=== PATIENT | male | born 1935 | race Caucasian/White ===

== ENCOUNTER 2018-03-30 13:05 | Inpatient (IN) | payer MEDICARE ==
--- NOTE | 2018-03-30 13:32 | ED ---
General Adult HPI - General Chief complaint: Psychiatric Symptoms Stated complaint: mental health Time Seen by Provider: 03/30/18 13:23 Source: patient, family, RN notes reviewed Mode of arrival: ambulatory Limitations: no limitations - History of Present Illness Initial comments: Patient is a pleasant 82-year-old male presenting to the emergency department with depression and anxiety. Symptoms have been occurring for months and worse over the past several days. Patient has not been eating well or sleeping well. Patient has tightness and anxiety over his body. Symptoms are getting worse regarding his current living situation and his 's recent surgery. Patient is having thoughts of self-harm, without plan. No history of previous suicide attempt. No homicidal thoughts. No street drug use. Rare alcohol use. - Related Data Home Medications Medication Instructions Recorded Confirmed ALPRAZolam [Xanax] 0.25 mg PO TID PRN 03/30/18 03/30/18 Albuterol Inhaler [Ventolin Hfa 1 - 2 puff INHALATION RT-Q6H PRN 03/30/18 Inhaler] Atorvastatin [Lipitor] 40 mg PO HS 03/30/18 03/30/18 Budesonide-Formot 160-4.5 Mcg 2 puff INHALATION RT-DAILY PRN 03/30/18 03/30/18 [Symbicort 160-4.5 Mcg Inhaler] Escitalopram [Lexapro] 10 mg PO HS 03/30/18 03/30/18 Fluticasone/Salmeterol [Advair Hfa 2 puff INHALATION RT-DAILY PRN 03/30/1803/30 230-21 Mcg Inhaler] Montelukast [Singulair] 10 mg PO HS 03/30/18 03/30/18 Allergies Allergy/AdvReac Type Severity Reaction Status Date / Time No Known Allergies Allergy Verified 03/30/18 13:41 Review of Systems ROS Statement: Those systems with pertinent positive or pertinent negative responses have been documented in the HPI. ROS Other: All systems not noted in ROS Statement are negative. Constitutional: Denies: fever Eyes: Denies: eye pain ENT: Denies: ear pain Respiratory: Denies: cough Cardiovascular: Denies: palpitations Endocrine: Denies: fatigue Gastrointestinal: Denies: vomiting Genitourinary: Denies: dysuria Musculoskeletal: Denies: back pain Skin: Denies: rash Neurological: Denies: weakness Psychiatric: Reports: anxiety, depression, suicidal thoughts Past Medical History Past Medical History: Asthma History of Any Multi-Drug Resistant Organisms: None Reported Past Surgical History: Hernia Repair Past Psychological History: No Psychological Hx Reported Smoking Status: Never smoker Past Alcohol Use History: Daily Past Drug Use History: None Reported General Exam Limitations: no limitations General appearance: alert, in no apparent distress Head exam: Present: atraumatic Eye exam: Present: normal appearance, PERRL ENT exam: Present: normal oropharynx Neck exam: Present: normal inspection Respiratory exam: Present: normal lung sounds bilaterally. Absent: chest wall tenderness Cardiovascular Exam: Present: regular rate, normal rhythm Expanded Peripheral pulses: 2+: Radial (R), Radial (L), Dorsalis Pedis (R), Dorsalis Pedis (L) GI/Abdominal exam: Present: soft. Absent: tenderness Extremities exam: Present: normal inspection. Absent: pedal edema, calf tenderness Neurological exam: Present: alert Psychiatric exam: Present: depressed, suicidal ideation Skin exam: Present: normal color Course Vital Signs 03/30/18 13:11 Temperature 97.0 F L Pulse Rate 72 Respiratory 18 Rate Blood Pressure 159/85 O2 Sat by Pulse 96 Oximetry EKG Findings - EKG Comments: EKG Findings:: Normal sinus rhythm 69. CT 194. QRS 164. QT 450. QTC 482. Normal axis. Right bundle branch block. No acute ST change. Medical Decision Making - Medical Decision Making Patient was seen by mental health services, who will admit. - Lab Data Result diagrams: 03/30/18 13:44 03/30/18 13:44 Lab Results 03/30/18 03/30/18 03/30/18 Range/Units 13:44 13:44 13:44 WBC 9.3 (3.8-10.6) k/uL RBC 4.72 (4.30-5.90) m/uL Hgb 15.0 (13.0-17.5) gm/dL Hct 44.5 (39.0-53.0) % MCV 94.3 (80.0-100.0) fL MCH 31.8 (25.0-35.0) pg MCHC 33.7 (31.0-37.0) g/dL RDW 12.0 (11.5-15.5) % Plt Count 246 (150-450) k/uL Neutrophils % 67 % Lymphocytes % 23 % Monocytes % 7 % Eosinophils % 1 % Basophils % 0 % Neutrophils # 6.2 (1.3-7.7) k/uL Lymphocytes # 2.1 (1.0-4.8) k/uL Monocytes # 0.6 (0-1.0) k/uL Eosinophils # 0.1 (0-0.7) k/uL Basophils # 0.0 (0-0.2) k/uL Sodium 137 (137-145) mmol/L Potassium 3.8 (3.5-5.1) mmol/L Chloride 103 (98-107) mmol/L Carbon Dioxide 26 (22-30) mmol/L Anion Gap 8 mmol/L BUN 13 (9-20) mg/dL Creatinine 1.02 (0.66-1.25) mg/dL Est GFR (CKD-EPI)AfAm 78 (>60 ml/min/1.73 sqM) Est GFR (CKD-EPI)NonAf 68 (>60 ml/min/1.73 sqM) Glucose 105 H (74-99) mg/dL Calcium 9.1 (8.4-10.2) mg/dL Urine Color Light Yellow Urine Appearance Clear (Clear) Urine pH 7.0 (5.0-8.0) Ur Specific [place] 1.007 (1.001-1.035) Urine Protein Negative (Negative) Urine Glucose (UA) Negative (Negative) Urine Ketones 1+ H (Negative) Urine Blood Trace H (Negative) Urine Nitrite Negative (Negative) Urine Bilirubin Negative (Negative) Urine Urobilinogen <2.0 (<2.0) mg/dL Ur Leukocyte Esterase Negative (Negative) Urine RBC 1 (0-5) /hpf Urine Bacteria Rare H (None) /hpf Urine Opiates Screen Not Detected (NotDetected) Ur Oxycodone Screen Not Detected (NotDetected) Urine Methadone Screen Not Detected (NotDetected) Ur Propoxyphene Screen Not Detected (NotDetected) Ur Barbiturates Screen Not Detected (NotDetected) U Tricyclic Antidepress Not Detected (NotDetected) Ur Phencyclidine Scrn Not Detected (NotDetected) Ur Amphetamines Screen Not Detected (NotDetected) U Methamphetamines Scrn Not Detected (NotDetected) U Benzodiazepines Scrn Detected H (NotDetected) Urine Cocaine Screen Not Detected (NotDetected) U Marijuana (THC) Screen Not Detected (NotDetected) Serum Alcohol <10 mg/dL Disposition Clinical Impression: Depression, Suicidal ideation Disposition: ADMITTED IP TO THIS HOSP Is patient prescribed a controlled substance at d/c from ED?: No Referrals: Nonstaff,Physician [REFERRING] - 1-2 days Decision Time: 15:49
[2018-03-30 13:56] LABS: Basophils % (A) 0 %; Eosinophils # (A) 0.1 k/uL (0-0.7); Eosinophils % (A) 1 %; HCT 44.5 % (39.0-53.0); Lymphocytes # (A) 2.1 k/uL (1.0-4.8); Lymphocytes % (A) 23 %; MCH 31.8 pg (25.0-35.0); MCHC 33.7 g/dL (31.0-37.0); MCV 94.3 fL (80.0-100.0); Mean Platelet Volume 6.4; Monocytes # (A) 0.6 k/uL (0-1.0); Monocytes % (A) 7 %; Neutrophils # (A) 6.2 k/uL (1.3-7.7); Neutrophils % (A) 67 %; Platelet Count 246 k/uL (150-450); RBC 4.72 m/uL (4.30-5.90); WBC 9.3 k/uL (3.8-10.6)
[2018-03-30 13:58] LABS: Appearance,Urine Clear (Clear); Bacteria,Urine Rare /hpf; Bilirubin,Urine Negative (Negative); Blood,Urine Trace (Negative); Color,Urine Light Yellow; Glucose,Urine (UA) Negative (Negative); Ketones,Urine 1+ (Negative); Leukocyte Esterase,Urine Negative (Negative); Nitrite,Urine Negative (Negative); Protein,Urine Negative (Negative); RBC,Urine 1 /hpf (0-5); Specific Gravity,Urine 1.007 (1.001-1.035); Urobilinogen,Urine <2.0 mg/dL (<2.0)
[2018-03-30 14:04] LABS: Alcohol <10 mg/dL; Anion Gap 8 mmol/L; Blood Urea Nitrogen 13 mg/dL (9-20); Calcium 9.1 mg/dL (8.4-10.2); Carbon Dioxide 26 mmol/L (22-30); Chloride 103 mmol/L (98-107); Glucose 105 mg/dL (74-99); Potassium 3.8 mmol/L (3.5-5.1); Sodium 137 mmol/L (137-145)
[2018-03-30 14:08] LABS: Amphetamine Screen,Urine Not Detected (NotDetected); Barbiturate Screen,Urine Not Detected (NotDetected); Benzodiazepines Screen,Urine Detected (NotDetected); Cocaine Screen,Urine Not Detected (NotDetected); Methadone Screen, Urine Not Detected (NotDetected); Opiate Screen,Urine Not Detected (NotDetected); Oxycodone Screen, Urine Not Detected (NotDetected); Phencyclidine Screen,Urine Not Detected (NotDetected); Tricyclic Antidepressant,Urine Not Detected (NotDetected); Urn Cannabinoid Scrn Not Detected (NotDetected)
[2018-03-30] MEDS ORDERED: ACETAMINOPHEN TAB 325 MG TAB PO PRN (16:07)
[2018-03-30] MEDS ORDERED: MAG HYDROX/AL HYDROX/SIMETH 30 ML CUP PO PRN (16:07)
[2018-03-30 17:49] VITALS: BMI 22.7
[2018-03-30] MEDS: LORazepam 0.5 MG TAB PO PRN (18:10)
[2018-03-30] MEDS: MONTELUKAST 10 MG TAB PO SCH (20:53)
[2018-03-30] MEDS: ESCITALOPRAM 10 MG TAB PO SCH (20:53)
[2018-03-30] MEDS: ATORVASTATIN 40 MG TAB PO SCH (20:53)
[2018-03-30] MEDS: MELATONIN 3 MG TABLET PO SCH (20:53)
[2018-03-31] MEDS: LORazepam 0.5 MG TAB PO PRN ×2 (06:34→18:12)
[2018-03-31] MEDS ORDERED: ALBUTEROL INHALER 60 PUFF/8 GM INHALER INHALATION PRN (06:38)
--- NOTE | 2018-03-31 06:42 | P.HPMEDMHU ---
History of Present Illness H&P Date: 03/31/18 Chief Complaint: Anxiety Mr. Brian is an 82-year-old male with a past medical history of asthma, enlarged prostate, dyslipidemia, and anxiety who presented to the emergency department with complaints of depression and anxiety. He has been admitted to the mental health unit and we have been asked to consult for medical management. Patient seen and examined at bedside with nursing present. A states he has had anxiety and depression related to his 's chronic medical conditions. They' re currently trying to move her into medical [place] and he has no control over this and it has been giving him anxiety. He has been taking his as needed Xanax more frequently in order to help cope. He describes his anxiety is feeling like an elephant is sitting on his chest- this gets better when taking his benzodiazepines. He has had associated insomnia and decreased appetite. He reports he does see a furniture dipper. He last saw Dr. Hi approximately one year ago and underwent a stress test and echocardiogram at that point in time. He was cleared for one year. He does have some urinary difficulties which are chronic in nature. He does not take any medications for this but does see a urologist. He reports that his COPD is well controlled. He denies any recent cough, cold, fever, flu, nausea, vomiting, or unusual shortness of breath. He takes his inhalers as needed. Review of Systems Pertinent positives and negatives as discussed in HPI, a complete review of systems was performed and all other systems are negative. 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; Allergies History of Any Multi-Drug Resistant Organisms: None Reported Past Surgical History: Hernia Repair Additional Past Surgical History / Comment(s): Basal cell skin cancer removed L side face; L eye lesion removed, Septum repair, R and Left inguinal hernia repair Past Anesthesia/Blood Transfusion Reactions: No Reported Reaction Past Psychological History: Anxiety Smoking Status: Former smoker Past Alcohol Use History: Daily Additional Past Alcohol Use History / Comment(s): 2 alcoholic beverages daily Past Drug Use History: None Reported - Past Family History Father Family Medical History: Congestive Heart Failure (CHF) Mother Family Medical History: Dementia Additional Family Medical History / Comment(s): Alzheimers Brother(s) Family Medical History: Cancer, Congestive Heart Failure (CHF) Additional Family Medical History / Comment(s): Kidney Cancer Sister(s) Family Medical History: Cancer Additional Family Medical History / Comment(s): Breast Cancer Medications and Allergies Home Medications Medication Instructions Recorded Confirmed Type ALPRAZolam [Xanax] 0.25 mg PO TID PRN 03/30/18 03/30/18 History Albuterol Inhaler [Ventolin Hfa 1 - 2 puff INHALATION RT-Q6H PRN 03/30/18 History Inhaler] Atorvastatin [Lipitor] 40 mg PO HS 03/30/18 03/30/18 History Budesonide-Formot 160-4.5 Mcg 2 puff INHALATION RT-DAILY PRN 03/30/18 03/30/18 History [Symbicort 160-4.5 Mcg Inhaler] Escitalopram [Lexapro] 10 mg PO HS 03/30/18 03/30/18 History Fluticasone/Salmeterol [Advair Hfa 2 puff INHALATION RT-DAILY PRN 03/30/1803/30 History 230-21 Mcg Inhaler] Montelukast [Singulair] 10 mg PO HS 03/30/18 03/30/18 History Allergies Allergy/AdvReac Type Severity Reaction Status Date / Time No Known Allergies Allergy Verified 03/30/18 17:55 Physical Exam Osteopathic Statement: *. No significant issues noted on an osteopathic structural exam other than those noted in the History and Physical/Consult. Vitals: Vital Signs Temp Pulse Pulse Pulse Resp BP BP 03/30/18 20:57 77 03/30/18 17:34 97.1 F L 73 20 145/86 03/30/18 16:01 97.7 F 68 18 166/75 03/30/18 13:11 97.0 F L 72 18 159/85 BP Pulse Ox 03/30/18 20:57 130/90 03/30/18 17:34 97 03/30/18 16:01 98 03/30/18 13:11 96 Intake and Output 03/30/18 03/30/18 03/31/18 14:59 22:59 06:59 Other: Weight 79.379 kg 78.3 kg General: non toxic, no distress, appears at stated age, normal weight Derm: no unusual rashes/lesions no unusual ecchymoses, warm, dry Head: atraumatic, normocephalic, symmetric Eyes: EOMI, no lid lag, anicteric sclera, pupils equal round reactive to light ENT: Nose and ears atraumatic, no thrush, no pharyngeal erythema Neck: No thyromegaly, no cervical lymphadenopathy, trachea midline, supple Mouth: no lip lesion, mucus membranes moist Cardiovascular: S1S2 reg, no murmur, positive posterior tibial pulse bilateral, no edema, capillary refill less than 2 seconds Lungs: CTA bilateral, no rhonchi, no rales , no accessory muscle use Abdominal: soft, nontender to palpation, no guarding, no appreciable organomegaly, normal bowel sounds Ext: no gross muscle atrophy, muscle strength 5 out of 5 in all 4 extremities grossly, no contractures, Neuro: CN II-XI grossly intact, light touch intact all 4 extremities, finger to nose within normal limits, Psych: Alert, oriented, appropriate affect Cranial Nerve Examination - Cranial Nerves Cranial Nerve II- Optic: Intact Cranial Nerve III- Oculomotor: Intact Cranial Nerve IV- Trochlear: Intact Cranial Nerve V- Trigeminal: Intact Cranial Nerve - Abducens: Intact Cranial Nerve VII- Facial: Intact Cranial Nerve VIII- Auditory: Intact Cranial Nerve IX- Glossopharyngeal: Intact Cranial Nerve X- Vagus: Intact Cranial Nerve XI- Accessory: Intact Cranial Nerve XII- Hypoglossal: Intact Results CBC & Chem 7: 03/30/18 13:44 03/30/18 13:44 Labs: Abnormal Lab Results - Last 24 Hours (Table) 03/30/18 03/30/18 Range/Units 13:44 13:44 Glucose 105 H (74-99) mg/dL Urine Ketones 1+ H (Negative) Urine Blood Trace H (Negative) Urine Bacteria Rare H (None) /hpf U Benzodiazepines Scrn Detected H (NotDetected) Comments: EKG is reviewed by myself reveals normal sinus rhythm at a rate of 69 with a right bundle branch block and prolonged QCT of 498 Thrombosis Risk Factor Assmnt - Choose All That Apply Any of the Below Risk Factors Present?: No Other Risk Factors: Yes Each Risk Factor Represents 3 Points: Age 75 years or older Other congenital or acquired thrombophilia - If yes, enter type in comment: No Thrombosis Risk Factor Assessment Total Risk Factor Score: 3 Thrombosis Risk Factor Assessment Level: Moderate Risk Assessment and Plan Assessment: Prolonged QT and right bundle branch block -Patient needs to follow-up with Dr. Hi, on discharge for further testing -Nursing made aware and recommendations added to discharge tab Asthma without acute exacerbation -Continue as needed bronchodilators Dyslipidemia -Continue Lipitor Anxiety depression -Your psych management -Please no prolonged QT - Check TSH Thank you for allowing us to participate in the care of this patient. We will follow peripherally. Do not hesitate to contact us with questions. Someone can be reached from the [facility] hospitalist group at all hours of the day at [phone].
[2018-03-31 10:06] LABS: Albumin 3.9 g/dL (3.5-5.0); Bilirubin, Delta 0.3 mg/dL (0.0-0.2); Total Bilirubin 1.3 mg/dL (0.2-1.3); Total Protein 6.4 g/dL (6.3-8.2)
--- NOTE | 2018-03-31 10:18 | P.HP ---
Psychiatric H&P - . H&P Date: 03/31/18 History & Physical: Allergies Allergy/AdvReac Type Severity Reaction Status Date / Time No Known Allergies Allergy Verified 03/30/18 17:55 Vital Signs Temp 97.8 F 03/31/18 06:25 Pulse 63 03/31/18 06:25 Resp 18 03/31/18 06:25 BP 141/67 03/31/18 06:25 Pulse Ox 97 03/30/18 17:34 Intake & Output 03/30/18 03/31/18 03/31/18 18:59 06:59 18:59 Weight 78.3 kg Laboratory Last Values WBC 9.3 k/uL (3.8-10.6) 03/30/18 13:44 RBC 4.72 m/uL (4.30-5.90) 03/30/18 13:44 Hgb 15.0 gm/dL (13.0-17.5) 03/30/18 13:44 Hct 44.5 % (39.0-53.0) 03/30/18 13:44 MCV 94.3 fL (80.0-100.0) 03/30/18 13:44 MCH 31.8 pg (25.0-35.0) 03/30/18 13:44 MCHC 33.7 g/dL (31.0-37.0) 03/30/18 13:44 RDW 12.0 % (11.5-15.5) 03/30/18 13:44 Plt Count 246 k/uL (150-450) 03/30/18 13:44 Neutrophils % 67 % 03/30/18 13:44 Lymphocytes % 23 % 03/30/18 13:44 Monocytes % 7 % 03/30/18 13:44 Eosinophils % 1 % 03/30/18 13:44 Basophils % 0 % 03/30/18 13:44 Neutrophils # 6.2 k/uL (1.3-7.7) 03/30/18 13:44 Lymphocytes # 2.1 k/uL (1.0-4.8) 03/30/18 13:44 Monocytes # 0.6 k/uL (0-1.0) 03/30/18 13:44 Eosinophils # 0.1 k/uL (0-0.7) 03/30/18 13:44 Basophils # 0.0 k/uL (0-0.2) 03/30/18 13:44 Sodium 137 mmol/L (137-145) 03/30/18 13:44 Potassium 3.8 mmol/L (3.5-5.1) 03/30/18 13:44 Chloride 103 mmol/L (98-107) 03/30/18 13:44 Carbon Dioxide 26 mmol/L (22-30) 03/30/18 13:44 Anion Gap 8 mmol/L 03/30/18 13:44 BUN 13 mg/dL (9-20) 03/30/18 13:44 Creatinine 1.02 mg/dL (0.66-1.25) 03/30/18 13:44 Est GFR (CKD-EPI)AfAm 78 (>60 ml/min/1.73 sqM) 03/30/18 13:44 Est GFR (CKD-EPI)NonAf 68 (>60 ml/min/1.73 sqM) 03/30/18 13:44 Glucose 105 mg/dL (74-99) H 03/30/18 13:44 Calcium 9.1 mg/dL (8.4-10.2) 03/30/18 13:44 Urine Color Light Yellow 03/30/18 13:44 Urine Appearance Clear (Clear) 03/30/18 13:44 Urine pH 7.0 (5.0-8.0) 03/30/18 13:44 Ur Specific Orwell 1.007 (1.001-1.035) 03/30/18 13:44 Urine Protein Negative (Negative) 03/30/18 13:44 Urine Glucose (UA) Negative (Negative) 03/30/18 13:44 Urine Ketones 1+ (Negative) H 03/30/18 13:44 Urine Blood Trace (Negative) H 03/30/18 13:44 Urine Nitrite Negative (Negative) 03/30/18 13:44 Urine Bilirubin Negative (Negative) 03/30/18 13:44 Urine Urobilinogen <2.0 mg/dL (<2.0) 03/30/18 13:44 Ur Leukocyte Esterase Negative (Negative) 03/30/18 13:44 Urine RBC 1 /hpf (0-5) 03/30/18 13:44 Urine Bacteria Rare /hpf (None) H 03/30/18 13:44 Urine Opiates Screen Not Detected (NotDetected) 03/30/18 13:44 Ur Oxycodone Screen Not Detected (NotDetected) 03/30/18 13:44 Urine Methadone Screen Not Detected (NotDetected) 03/30/18 13:44 Ur Propoxyphene Screen Not Detected (NotDetected) 03/30/18 13:44 Ur Barbiturates Screen Not Detected (NotDetected) 03/30/18 13:44 U Tricyclic Antidepress Not Detected (NotDetected) 03/30/18 13:44 Ur Phencyclidine Scrn Not Detected (NotDetected) 03/30/18 13:44 Ur Amphetamines Screen Not Detected (NotDetected) 03/30/18 13:44 U Methamphetamines Scrn Not Detected (NotDetected) 03/30/18 13:44 U Benzodiazepines Scrn Detected (NotDetected) H 03/30/18 13:44 Urine Cocaine Screen Not Detected (NotDetected) 03/30/18 13:44 U Marijuana (THC) Screen Not Detected (NotDetected) 03/30/18 13:44 Serum Alcohol <10 mg/dL 03/30/18 13:44 03/31/18 10:06 Identification: Patient is an 82-year-old male who was brought to the emergency room by his daughter due to having bad thoughts and anxiety over his 's declining health. History of Present Illness: Patient states that his 's health has been declining over the last several years she is now diagnosed with atrial fibrillation, has had pulmonary embolisms in 2003 and is now requiring oxygen. Her kidney function is also decreasing and she recently had a wound on her right lower extremity that was difficult to close and is requiring a wound VAC. Patient states that they live in a third[place]floor apartment [place] as well as a cottage in [place]. He states that they have home care for his 's wound but that they feel trapped in the apartment. There is no elevator in the apartment and his has great difficulty getting out of the apartment. Patient states that he feels increasingly anxious and unable to control things. He states that he has not been sleeping and not been eating. He states that he doesn't feel that he has enough assistance with his and feels overwhelmed and unable to fix things. Patient contacted his prior primary care doctor in [place] who began him on Lexapro 10 mg at bedtime several days ago. Patient has been using Xanax 0.25 mg as needed up for a number of years in the winter for asthma attacks. He states that recently he has been using it at bedtime for the last month to assist with his sleep. States that he's been having difficulty concentrating, feels that he can't deal with things especially his 's health. He states that Sunday night he felt that he couldn't handle it and had no suicidal ideation or plan and did not want to but felt overwhelmed. His daughter was concerned and they returned here on Sunday and came to the emergency room. He states that his isn't able to do much she is not going to get any better and they have been looking at jail placement for her. He stated that his daughter is bringing her to the hospital today for probable admission. Patient has no history of prior suicidal ideation or attempts, he states that he has never felt this way in the past. He has never been treated for depression in the past and does not endorse any history or symptoms currently of funmilayo, psychosis but states in the 80s on 2 occasions he was treated for anxiety related to job stress. He states in the 80s he was given Pamelor for a week and in the s Zoloft which he did not tolerate. Patient states that he has never been seen by a psychiatrist and these medications were prescribed by his primary care physician in [place]. Past Psychiatric History: Patient has no prior history of inpatient treatment and no outpatient psychiatric treatment. Patient was tried on Pamelor in the 80s by his primary care physician with good results for one week and Zoloft in the past in the s with complaints of side effects. He was recently started on Lexapro 2 days ago 10 mg at bedtime by his primary care physician. Patient is also been prescribed Xanax 0.25 mg by his primary care physician to use as needed in the winter when he is having asthma attacks. Patient states he's been taking this nightly for the last month Past Medical/Surgical History: Patient has a history of asthma, status post basal cell carcinoma removed says post bilateral hernia repair and hyperlipidemia Family History: Patient reports no family history of psychiatric disorders, alcohol or substance use disorders and no completed suicides Social History: Patient was born in [place] and states that due to his father' s job they moved around a lot as a child. Both of his parents are and both of his siblings are . 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 Patient began working and was encouraged at that time to return to school and so he did that. 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 Patient retired at the age of 69. Patient and his have been for 60 years and they have 1 daughter. His is a [place] citizen and he met because his mother was also a [place] citizen. They have a cottage in [place] and an apartment in the [place]. They have one daughter and 2 grandchildren. He denies any abuse history. Substance Use History: Patient states that he drinks 2 drinks a day usually at the cocktail hour, is not anything to drink for the last several days no other drug use history currently or in the past. Patient currently is not using tobacco products. Legal History: Patient has no legal history Mental status: Appearance/Attitude: Patient is casually dressed, makes good eye contact and is cooperative. Behavior: He does not exhibit any psychomotor agitation or retardation. Speech/Language: Patient's speech is spontaneous of normal volume and rhythm and he is coherent Thought Process: Patient is goal-directed there is no evidence of loose associations or flight of ideas Thought Content: Patient denies any auditory or visual hallucinations and no delusions or paranoid ideation or elicited. Patient states he feels helpless to fix his 's health issues, is been feeling overwhelmed recently after she had recent surgery on her leg and is needing extensive wound care. Patient states that he feels overwhelmed and out of control and has not been sleeping or eating over the last month as well as he was before. Patient stated that he feels he can't handle it anymore. Suicidal/Homicidal Ideation: Patient denies any current suicidal or homicidal ideation Sensorium/Cognition: Patient is alert and oriented to person, place, and time and his recent and remote memory are grossly intact. Says his concentration has been poor recently Mood/Affect: Patient's mood is anxious and his affect is appropriate to his mood Insight/Judgment: Patient's insight and judgment are intact Intellectual Functioning: Patient's intellectual functioning appears average Strength/Weakness: Patient has housing, financial support, supportive family/ feeling like I have no control. Assessment: Patient presents stating that he feels unable to fix his 's health problems, felt that he could no longer deal with it and has been feeling increasingly anxious, not eating or not sleeping over the last month. His is requiring home health care, wound care and he states that they feel trapped in their third-floor apartment. Patient states that 2 days ago he started using Lexapro 10 mg at bedtime has had no adverse reaction but sees no benefit yet. Patient is also been using Xanax 0.25 mg at bedtime for the last month to assist with his sleep. Patient has no prior history of any psychiatric treatment, has had 2 episodes in the past of job related stress and anxiety where he took medication for a brief period of time. There is no evidence of any manic symptoms, psychotic symptoms or major depressive episodes in the past. Patient does use alcohol 2 drinks a night or a number of years. Admission Diagnosis: Adjustment reaction with mixed features Plan: Patient was admitted to the hospital on a voluntary basis, placed on routine observation in group and activity therapy were ordered. Patient also had routine laboratory studies as well as a medical consultation and was placed on his medications for his asthma and hyperlipidemia. Patient's EKG showed abnormalities of a right bundle branch block slightly prolonged QTc interval and he will follow-up with his primary care physician upon discharge. Patient and I discussed the use and side effects of Lexapro and he will continue on 10 mg at bedtime. I discussed that I would recommend discontinuing the use of Xanax on a regular basis to assist with sleep and changed him to Ativan 0.5 mg twice a day as needed and suggested to the patient that he tried to not use this medication. Patient was also placed on melatonin 3 mg at bedtime to target his sleep. Patient was encouraged to attend groups and activities and to let us know if his appetite had improved.
[2018-03-31] MEDS: ATORVASTATIN 40 MG TAB PO SCH (20:23)
[2018-03-31] MEDS: ESCITALOPRAM 10 MG TAB PO SCH (20:23)
[2018-03-31] MEDS: MONTELUKAST 10 MG TAB PO SCH (20:23)
[2018-03-31] MEDS: MELATONIN 3 MG TABLET PO SCH (20:23)
[2018-03-31] MEDS: SYMBICORT 160-4.5 MCG INHALER INHALATION PRN (20:43)
[2018-04-01 06:38] VITALS: RESP 16; TEMP 97.9
[2018-04-01] MEDS: SYMBICORT 160-4.5 MCG INHALER INHALATION PRN (08:44)
[2018-04-01] MEDS: LORazepam 0.5 MG TAB PO PRN (08:55)
[2018-04-01] MEDS: MAGNESIUM HYDROXIDE 2,400 MG/10 ML CUP PO PRN (08:55)
--- NOTE | 2018-04-01 12:31 | P.PN ---
Progress Note - Text Progress Note Date: 04/01/18 Interval History: Patient is an 82-year-old male who was seen today and he reports that he slept well yesterday and actually even took a nap yesterday afternoon. He states that he feels relieved since he is been admitted to the hospital, no longer feeling as stressed about caring for his . States that his was admitted to the medical floor and they are planning for transfer to a standing care facility once she is ready for discharge. Patient states he still feeling anxious and on edge and has been using the Ativan 0.5 mg twice a day as needed. Patient states that he is not having any suicidal thoughts and has been attending groups and activities. Mental Status: Appearance/Attitude: Patient is casually dressed, makes good eye contact and is cooperative. Behavior: Patient does not exhibit any psychomotor agitation or retardation. Speech/Language: Patient is spontaneous speech is of normal volume and rhythm and he is coherent. Thought Process: Patient is goal-directed there is no evidence of loose association or flight of ideas Thought Content: Patient denies any auditory or visual hallucinations and no delusions or paranoid ideation or elicited. Patient states that he still feeling anxious and on edge and has been taking the Ativan twice a day. He states that he slept well last night and actually even napped prior to dinner. He states that he feels like a weight has been lifted off his chest now that he is been here as well as his having been admitted to the medical hospital. Patient states that he is appetite is good and he has been eating. Suicidal/Homicidal Ideation: Patient denies any current suicidal or homicidal ideation Sensorium/Cognition: Patient is alert and oriented to person, place, and time and his recent and remote memory are grossly intact Mood/Affect: Patient's mood is pleasant and his affect is appropriate, he continues to complain that he feels anxious and on edge. Insight/Judgment: Patient's insight and judgment are intact Assessment: Patient and I discussed his use of Ativan and I suggested that he try to not use the Ativan so that we can assess how well the Lexapro is working to control his anxiety. Patient did sleep last night and states that he actually napped in the afternoon. He is feeling relieved that his is been admitted to the hospital on a medical floor and that they're looking at transferring her to an extended care facility at the time of discharge. Patient states that he is not having any suicidal ideation and has been attending groups and activities. Plan: Patient will continue on Lexapro 10 mg daily, melatonin 3 mg at night and I encouraged the patient to not use the Ativan so that we can assess how effective the Lexapro is in targeting his symptoms of anxiety. Patient and I discussed discharge later this week once we can determine whether the Lexapro has been effective at this dose to control his anxiety symptoms.
[2018-04-01] MEDS: ATORVASTATIN 40 MG TAB PO SCH (20:34)
[2018-04-01] MEDS: MONTELUKAST 10 MG TAB PO SCH (20:34)
[2018-04-01] MEDS: MELATONIN 3 MG TABLET PO SCH (20:34)
[2018-04-01] MEDS: ESCITALOPRAM 10 MG TAB PO SCH (20:34)
[2018-04-02] MEDS: SYMBICORT 160-4.5 MCG INHALER INHALATION PRN (11:22)
[2018-04-02] MEDS: MAGNESIUM HYDROXIDE 2,400 MG/10 ML CUP PO PRN (11:33)
--- NOTE | 2018-04-02 14:05 | P.PN ---
Progress Note - Text Progress Note Date: 04/02/18 Interval History: Patient is an 82-year-old male who was seen today and he reports that he woke up last night but was able to return to sleep, he states that he took Ativan yesterday morning and has not since that time but is still feeling somewhat anxious. States that the weight has been lifted off his chest and that he got news that his has been accepted at [facility] and will be discharged there today or tomorrow. Patient states that he still concerned about anxiety returning as he hasn't used the Ativan and wonders if the Lexapro is effective yet. Mental Status: Appearance/Attitude: Patient is casually dressed, makes good eye contact and is cooperative Behavior: Patient does not display any psychomotor agitation or retardation Speech/Language: Patient's speech is spontaneous and normal volume and rhythm and he is coherent Thought Process: Patient is goal-directed there is no evidence of loose association or flight of ideas. Thought Content: Patient denies any auditory or visual hallucinations and no delusions or paranoid ideation or elicited. Patient continues to voice concerns that his anxiety is not going to be controlled with the Lexapro alone even though he reports he has not been feeling as anxious as he was on admission. Patient states that he only used the Ativan yesterday morning and has not since then. Patient states he awakened last night and states his sleep wasn't as good as the night before. Patient states that his has been accepted at [facility] and he is relieved with that plan. Patient states that his appetite has improved. Suicidal/Homicidal Ideation: Patient denies any current suicidal or homicidal ideation. Sensorium/Cognition: He was alert and oriented to person, place, and time and his recent and remote memory are grossly intact Mood/Affect: Patient's mood is anxious and his affect is appropriate Insight/Judgment: Patient's insight and judgment are intact Assessment: Patient had a long discussion regarding his living situation at the apartment, the lack of an elevator or other things such as grab bars, walk-in shower. Patient and I discussed the possibility of assisted living any states that his daughter had also raised this option for both he and his . Patient states that he is relieved his was accepted at [facility] and states his gives him some time to think about their living situation. Patient states that they can't live consistently in [place] as [place]. Patient states that he still anxious at this point, Concerta the Lexapro has an effective and wants to wait until a visit with his daughter tomorrow evening before discharge. Plan: Patient continues on Lexapro 10 mg in the morning and melatonin 3 mg at bedtime will discontinue the Ativan to assess the patient's response to Lexapro. Patient and I discussed discharge then on after he has a meeting with his daughter on Sunday night.
[2018-04-02] MEDS: MONTELUKAST 10 MG TAB PO SCH (20:25)
[2018-04-02] MEDS: ATORVASTATIN 40 MG TAB PO SCH (20:25)
[2018-04-02] MEDS: ESCITALOPRAM 10 MG TAB PO SCH (20:25)
[2018-04-02] MEDS: MELATONIN 3 MG TABLET PO SCH (20:25)
[2018-04-03 07:06] VITALS: BP 137/74; PULSE 66
[2018-04-03] MEDS: SYMBICORT 160-4.5 MCG INHALER INHALATION PRN (09:26)
--- NOTE | 2018-04-03 11:41 | P.DS ---
Providers Date of admission: 03/30/18 15:51 Expected date of discharge: 04/03/18 Attending physician: Rylie Robert MD Consults: 03/30/18 16:16 Consult Physician Routine Consulting Provider: Ashley Adrian Consult Reason/Comments: H & P and medical care Do you want consulting provider notified?: Yes Primary care physician: [facility] Course: Discharge Diagnosis: Adjustment disorder with depressed and anxious mood. Reason for Admission: Patient is an 82-year-old male who was brought to the emergency room by his daughter due to having bad thoughts and anxiety over his 's declining health. Patient states that his 's health has been declining over the last several years she is now diagnosed with atrial fibrillation, has had pulmonary embolisms in 2003 and is now requiring oxygen. Her kidney function is also decreasing and she recently had a wound on her right lower extremity that was difficult to close and is requiring a wound VAC. Patient states that they live in a third-floor apartment in the [place] as well as a cottage in [place]. He states that they have home care for his 's wound but that they feel trapped in the apartment. There is no elevator in the apartment and his has great difficulty getting out of the apartment. Patient states that he feels increasingly anxious and unable to control things. He states that he has not been sleeping and not been eating. He states that he doesn't feel that he has enough assistance with his and feels overwhelmed and unable to fix things. Patient contacted his prior primary care doctor in [place] who began him on Lexapro 10 mg at bedtime several days ago. Patient has been using Xanax 0.25 mg as needed up for a number of years in the winter for asthma attacks. He states that recently he has been using it at bedtime for the last month to assist with his sleep. States that he's been having difficulty concentrating, feels that he can't deal with things especially his 's health. He states that Sunday night he felt that he couldn't handle it and had no suicidal ideation or plan and did not want to but felt overwhelmed. His daughter was concerned and they returned here on Sunday and came to the emergency room. He states that his isn't able to do much she is not going to get any better and they have been looking at longterm placement for her. He stated that his daughter is bringing her to the hospital today for probable admission. Patient has no history of prior suicidal ideation or attempts, he states that he has never felt this way in the past. He has never been treated for depression in the past and does not endorse any history or symptoms currently of funmilayo, psychosis but states in the 80s on 2 occasions he was treated for anxiety related to job stress. He states in the 80s he was given Pamelor for a week and in the 90s Zoloft which he did not tolerate. Patient states that he has never been seen by a psychiatrist and these medications were prescribed by his primary care physician in [place]. Mental status on Admission: Appearance/Attitude: Patient is casually dressed, makes good eye contact and is cooperative. Behavior: He does not exhibit any psychomotor agitation or retardation. Speech/Language: Patient's speech is spontaneous of normal volume and rhythm and he is coherent Thought Process: Patient is goal-directed there is no evidence of loose associations or flight of ideas Thought Content: Patient denies any auditory or visual hallucinations and no delusions or paranoid ideation or elicited. Patient states he feels helpless to fix his 's health issues, is been feeling overwhelmed recently after she had recent surgery on her leg and is needing extensive wound care. Patient states that he feels overwhelmed and out of control and has not been sleeping or eating over the last month as well as he was before. Patient stated that he feels he can't handle it anymore. Suicidal/Homicidal Ideation: Patient denies any current suicidal or homicidal ideation Sensorium/Cognition: Patient is alert and oriented to person, place, and time and his recent and remote memory are grossly intact. Says his concentration has been poor recently Mood/Affect: Patient's mood is anxious and his affect is appropriate to his mood Insight/Judgment: Patient's insight and judgment are intact Hospital Course: Patient was admitted on a voluntary basis, placed on routine observation in group and activity therapy were ordered. Patient was also ordered routine laboratory studies and a medical consultation. Patient was maintained on his medications for his medical problems. Patient was also continued on the Lexapro 10 mg that had been started several days earlier by his primary care physician. Patient was also placed on Ativan 0.5 mg twice a day as needed to replace the Xanax that he had been using on the outside. Patient was also prescribed melatonin 3 mg at bedtime. Patient attended groups and activities and was encouraged to not use the Ativan to see how effective the Lexapro would be in controlling his anxiety. Patient did not use the Ativan for several days and reported that he was feeling less anxious. Patient stated that he felt like a weight had been lifted off his chest when he was admitted as well as when he found out that his had been admitted to the hospital on a medical floor and was being considered for placement in longterm. Patient reported no side effects from the Lexapro in the melatonin had been effective in improving his sleep. Patient reported he was less anxious, was no longer feeling as depressed and was no longer having any suicidal thoughts. Patient states that he was relieved that his would be going to [facility]. Patient and I also had a long discussion regarding the things that he could control in his life, and discussed different living situations that would make it easier for his when she returns to live with him as well as for him to not feel so trapped. Patient was open to this. Patient felt ready for discharge and will return to live in his apartment. Allergies No Known Allergies Allergy (Verified 03/30/18 17:55) Laboratory Last Values WBC 9.3 k/uL (3.8-10.6) 03/30/18 13:44 RBC 4.72 m/uL (4.30-5.90) 03/30/18 13:44 Hgb 15.0 gm/dL (13.0-17.5) 03/30/18 13:44 Hct 44.5 % (39.0-53.0) 03/30/18 13:44 MCV 94.3 fL (80.0-100.0) 03/30/18 13:44 MCH 31.8 pg (25.0-35.0) 03/30/18 13:44 MCHC 33.7 g/dL (31.0-37.0) 03/30/18 13:44 RDW 12.0 % (11.5-15.5) 03/30/18 13:44 Plt Count 246 k/uL (150-450) 03/30/18 13:44 Neutrophils % 67 % 03/30/18 13:44 Lymphocytes % 23 % 03/30/18 13:44 Monocytes % 7 % 03/30/18 13:44 Eosinophils % 1 % 03/30/18 13:44 Basophils % 0 % 03/30/18 13:44 Neutrophils # 6.2 k/uL (1.3-7.7) 03/30/18 13:44 Lymphocytes # 2.1 k/uL (1.0-4.8) 03/30/18 13:44 Monocytes # 0.6 k/uL (0-1.0) 03/30/18 13:44 Eosinophils # 0.1 k/uL (0-0.7) 03/30/18 13:44 Basophils # 0.0 k/uL (0-0.2) 03/30/18 13:44 Sodium 137 mmol/L (137-145) 03/30/18 13:44 Potassium 3.8 mmol/L (3.5-5.1) 03/30/18 13:44 Chloride 103 mmol/L (98-107) 03/30/18 13:44 Carbon Dioxide 26 mmol/L (22-30) 03/30/18 13:44 Anion Gap 8 mmol/L 03/30/18 13:44 BUN 13 mg/dL (9-20) 03/30/18 13:44 Creatinine 1.02 mg/dL (0.66-1.25) 03/30/18 13:44 Est GFR (CKD-EPI)AfAm 78 (>60 ml/min/1.73 sqM) 03/30/18 13:44 Est GFR (CKD-EPI)NonAf 68 (>60 ml/min/1.73 sqM) 03/30/18 13:44 Glucose 105 mg/dL (74-99) H 03/30/18 13:44 Calcium 9.1 mg/dL (8.4-10.2) 03/30/18 13:44 Total Bilirubin 1.3 mg/dL (0.2-1.3) 03/30/18 13:44 Conjugated Bilirubin 0.0 mg/dL (0.0-0.3) 03/30/18 13:44 Unconjugated Bilirubin 1.0 mg/dL (0.0-1.1) 03/30/18 13:44 Delta Bilirubin 0.3 mg/dL (0.0-0.2) H 03/30/18 13:44 AST 33 U/L (17-59) 03/30/18 13:44 ALT 44 U/L (21-72) 03/30/18 13:44 Alkaline Phosphatase 74 U/L (38-126) 03/30/18 13:44 Total Protein 6.4 g/dL (6.3-8.2) 03/30/18 13:44 Albumin 3.9 g/dL (3.5-5.0) 03/30/18 13:44 TSH 1.080 mIU/L (0.465-4.680) 03/30/18 13:44 Urine Color Light Yellow 03/30/18 13:44 Urine Appearance Clear (Clear) 03/30/18 13:44 Urine pH 7.0 (5.0-8.0) 03/30/18 13:44 Ur Specific [place] 1.007 (1.001-1.035) 03/30/18 13:44 Urine Protein Negative (Negative) 03/30/18 13:44 Urine Glucose (UA) Negative (Negative) 03/30/18 13:44 Urine Ketones 1+ (Negative) H 03/30/18 13:44 Urine Blood Trace (Negative) H 03/30/18 13:44 Urine Nitrite Negative (Negative) 03/30/18 13:44 Urine Bilirubin Negative (Negative) 03/30/18 13:44 Urine Urobilinogen <2.0 mg/dL (<2.0) 03/30/18 13:44 Ur Leukocyte Esterase Negative (Negative) 03/30/18 13:44 Urine RBC 1 /hpf (0-5) 03/30/18 13:44 Urine Bacteria Rare /hpf (None) H 03/30/18 13:44 Urine Opiates Screen Not Detected (NotDetected) 03/30/18 13:44 Ur Oxycodone Screen Not Detected (NotDetected) 03/30/18 13:44 Urine Methadone Screen Not Detected (NotDetected) 03/30/18 13:44 Ur Propoxyphene Screen Not Detected (NotDetected) 03/30/18 13:44 Ur Barbiturates Screen Not Detected (NotDetected) 03/30/18 13:44 U Tricyclic Antidepress Not Detected (NotDetected) 03/30/18 13:44 Ur Phencyclidine Scrn Not Detected (NotDetected) 03/30/18 13:44 Ur Amphetamines Screen Not Detected (NotDetected) 03/30/18 13:44 U Methamphetamines Scrn Not Detected (NotDetected) 03/30/18 13:44 U Benzodiazepines Scrn Detected (NotDetected) H 03/30/18 13:44 Urine Cocaine Screen Not Detected (NotDetected) 03/30/18 13:44 U Marijuana (THC) Screen Not Detected (NotDetected) 03/30/18 13:44 Serum Alcohol <10 mg/dL 03/30/18 13:44 Discharge Mental Status: Appearance/Attitude: Patient is casually dressed, makes good eye contact and was cooperative. Behavior: Patient did not display any psychomotor agitation or retardation. Speech/Language: Patient's speech was spontaneous of normal volume and rhythm and he was coherent. Thought Process: Patient was goal-directed there is no evidence of loose association or flight of ideas. Thought Content: Patient denied any auditory or visual hallucinations and no delusional delusions or paranoid ideations were elicited. Patient stated that he was not feeling as overwhelmed, was no longer feeling as anxious and was feeling more comfortable returning home to live in the apartment knowing that his was now in a longterm receiving care. Patient states that he is also considering other living situations to make it easier for both himself and his . Patient reported that his sleep had improved and his appetite had also improved Suicidal/Homicidal Ideation: Patient denied any current suicidal or homicidal ideation Sensorium/Cognition: Patient is alert and oriented to person, place, and time and his recent and remote memory are grossly intact Mood/Affect: Patient's mood is pleasant and his affect is appropriate Insight/Judgment: Patient's insight and judgment are intact Risk Assessment: Patient's risk for readmission is low Discharge Plan: Patient will return to his apartment, he will continue on his medications for his asthma and his hyperlipidemia. Patient will be given a prescription for the Lexapro 10 mg in the morning and melatonin 3 mg at bedtime. Patient was encouraged to follow up with [facility] for outpatient psychiatric care. I also advised the patient to decrease his use of alcohol. Patient Condition at Discharge: Stable Plan - Discharge Summary Discharge Rx Participant: No New Discharge Prescriptions: New Melatonin 3 mg PO HS #28 tablet Continue Fluticasone/Salmeterol [Advair Hfa 230-21 Mcg Inhaler] 2 puff INHALATION RT- DAILY PRN PRN Reason: Shortness Of Breath Albuterol Inhaler [Ventolin Hfa Inhaler] 1 - 2 puff INHALATION RT-Q6H PRN PRN Reason: Shortness Of Breath Montelukast [Singulair] 10 mg PO HS Budesonide-Formot 160-4.5 Mcg [Symbicort 160-4.5 Mcg Inhaler] 2 puff INHALATION RT-DAILY PRN PRN Reason: Shortness Of Breath Atorvastatin [Lipitor] 40 mg PO HS Escitalopram [Lexapro] 10 mg PO HS #14 tab Discontinued ALPRAZolam [Xanax] 0.25 mg PO TID PRN PRN Reason: Anxiety Discharge Medication List Albuterol Inhaler [Ventolin Hfa Inhaler] 1 - 2 puff INHALATION RT-Q6H PRN [History] Atorvastatin [Lipitor] 40 mg PO HS 03/30/18 [History] Budesonide-Formot 160-4.5 Mcg [Symbicort 160-4.5 Mcg Inhaler] 2 puff INHALATION RT-DAILY PRN 03/30/18 [History] Fluticasone/Salmeterol [Advair Hfa 230-21 Mcg Inhaler] 2 puff INHALATION RT- DAILY PRN 03/30/18 [History] Montelukast [Singulair] 10 mg PO HS 03/30/18 [History] Escitalopram [Lexapro] 10 mg PO HS #14 tab 04/03/18 [Rx] Melatonin 3 mg PO HS #28 tablet 04/03/18 [Rx] Follow up Appointment(s)/Referral(s): [facility] [Outside] - 04/15/18 10:00 am ([facility] Kirk ) Wilder Duron DO [Primary Care Provider] - 1 Week Ronn Lorenzo MD [STAFF PHYSICIAN] - 1 Week Patient Instructions/Handouts: Stress (DC), Depression (DC), Generalized Anxiety Disorder (ED) Activity/Diet/Wound Care/Special Instructions: Remove all weapons and firearms from the home; Refrain from street drugs and alcohol; Diet and activity as tolerated; Follow-up with your PCP in 1-2 days; Keep all scheduled follow-up appointments for continuity of care; Contact either your PCP or your aftercare psychiatrist for prescription refills; If you have any problems call the Crisis Line at or go to the nearest ER for a psychiatric evaluation. Discharge Disposition: HOME SELF-CARE
== END 2018-04-03 14:40 | disposition home or self-care (01) | DRG 882 ==
LOC: EC 13:05 → 3MHU 15:51
PROVIDERS: ADMIT Psychiatry & Neurology Psychiatry; ATTEND Psychiatry & Neurology Psychiatry
DX: F43.23 Adjustment disorder with mixed anxiety and depressed mood (principal); R45.851 Suicidal ideations; J45.909 Unspecified asthma, uncomplicated; I45.10 Unspecified right bundle-branch block; E78.5 Hyperlipidemia, unspecified; G47.00 Insomnia, unspecified; N40.0 Benign prostatic hyperplasia without lower urinary tract symptoms; Z79.51 Long term (current) use of inhaled steroids; Z79.899 Other long term (current) drug therapy; Z85.828 Personal history of other malignant neoplasm of skin; Z82.49 Family history of ischemic heart disease and other diseases of the circulatory system; Z80.51 Family history of malignant neoplasm of kidney; Z80.3 Family history of malignant neoplasm of breast; Z82.0 Family history of epilepsy and other diseases of the nervous system
CPT/HCPCS: 36415; 80048; 80076; 80306; 80320; 81001; 82075; 84443; 85025; 93005; 94640; 99285

== ENCOUNTER → 2019-06-11 | Outpatient (CLI) | payer MEDICARE | END | disposition home or self-care (01) | LOC: LABWHC1 14:41 | PROVIDERS: ATTEND Urology | DX: R97.20 Elevated prostate specific antigen [PSA] (principal) | CPT/HCPCS: 36415; 84153 ==

== ENCOUNTER → 2022-07-10 | Outpatient (CLI) | payer MEDICARE | END | disposition home or self-care (01) | LOC: LABWHC1 13:01 | PROVIDERS: ATTEND Urology | DX: R97.20 Elevated prostate specific antigen [PSA] (principal) | CPT/HCPCS: 36415; 84153 ==

== ENCOUNTER → 2022-08-09 | Outpatient (CLI) | payer MEDICARE | END | disposition home or self-care (01) | LOC: LABWHC1 11:32 | PROVIDERS: ATTEND Urology | DX: R97.20 Elevated prostate specific antigen [PSA] (principal) | CPT/HCPCS: 36415; 84153 ==

== ENCOUNTER → 2023-06-12 | Outpatient (CLI) | payer MEDICARE | END | disposition home or self-care (01) | LOC: LABWHC1 14:45 | PROVIDERS: ATTEND Urology | DX: C61 Malignant neoplasm of prostate (principal) | CPT/HCPCS: 36415; 84153 ==

== ENCOUNTER → 2023-12-11 | Outpatient (CLI) | payer MEDICARE ==
--- NOTE | 2023-12-11 11:39 | XR ---
EXAM TYPE: LUMBAR SPINE X RAY SERIES COMPARISON: NONE HISTORY: None TECHNIQUE: 6 views are submitted. FINDINGS: There is a scoliotic curve to the spine with a rotatory component. Elevated hemidiaphragm. There is s evere degenerative disc disease and hypertrophic spurring at all levels. Multilevel severe facet arth ropathy with foraminal encroachment suspected. Grade 1 anterolisthesis L4 on L5 appear stable with fl exion and extension views. Punctate to bilateral upper quadrant calcifications suspicious for renal c alculi. IMPRESSION: 1. Severe degenerative disc disease with scoliosis at all levels. Suspect multilevel foraminal encroa chment with facet arthropathy. 2. Punctate bilateral renal calculi.
== END | disposition home or self-care (01) ==
LOC: RADXRMAIN 10:40
PROVIDERS: ATTEND Internal Medicine
DX: M51.17 Intervertebral disc disorders with radiculopathy, lumbosacral region (principal); M47.27 Other spondylosis with radiculopathy, lumbosacral region; M41.87 Other forms of scoliosis, lumbosacral region; N20.0 Calculus of kidney
CPT/HCPCS: 72114

== ENCOUNTER → 2023-12-11 | Outpatient (CLI) | payer MEDICARE | END | disposition home or self-care (01) | LOC: LABWHC1 10:38 | PROVIDERS: ATTEND Urology | DX: C61 Malignant neoplasm of prostate (principal) | CPT/HCPCS: 36415; 84153 ==

== ENCOUNTER → 2023-12-19 | Outpatient (CLI) | payer MEDICARE ==
--- NOTE | 2023-12-24 20:23 | MR ---
EXAMINATION TYPE: MR lumbar spine wo con DATE OF EXAM: 12/19/2023 COMPARISON: Radiographs 12/11/2023 HISTORY: 88-year-old male M47.27 Lower back pain, BLE radiculopathy/numbness. TECHNIQUE: Multiplanar, multisequence images of the lumbar spine were acquired without IV contrast. FINDINGS: There is a degenerated dextroconvex scoliosis. Associated edematous Modic type I endplate change towards the left at L4-L5 and to a lesser degree at L5-S1. Moderate multilevel degenerative disc disease with desiccated and bulging discs. Posterior annular fi ssures at multiple levels mid and lower lumbar spine. Severe hypertrophic facet arthropathy is present throughout. Conus medullaris is normal. There is a trace grade 1 retrolisthesis L2-L3 and grade 1 anterolisthesis L4-L5. Combination of the anterolisthesis, diffuse disc bulge, facet arthropathy, and ligamentum flavum thic kening contributes to a focal severe spinal canal stenosis at L4-L5 with complete effacement of the C SF signal. Changes contribute to mild spinal canal narrowing at L2-L3 and L3-L4. On the left, there is moderate neural foraminal stenoses L2-L3, L3-L4, L4-L5. At L4-L5, a large left lateral disc osteophyte complex at L4-L5 may impinge the extraforaminal left L 4 nerve root. On the right, resulting in moderate neuroforaminal stenosis at L5-S1 and mild additional levels. IMPRESSION: 1. Degenerated dextroconvexed scoliosis. Moderate multilevel degenerative disc disease with scattered small annular fissures as well as hypertrophic facet arthropathy and ligamentum flavum thickening. 2. Degenerative trace grade 1 retrolisthesis L2-L3 and anterolisthesis L4-L5. 3. Severe focal spinal canal stenosis at L4-L5. The normal CSF signal is completely effaced at this l evel. Mild canal narrowing at L2-L3 and L3-L4. 4. Moderate left neural foraminal stenosis from L2 through L5 levels. Also on the right at L5-S1. 5. A large left lateral disc osteophyte complex at L4-L5 may impinge the extraforaminal left L4 nerve root.
== END | disposition home or self-care (01) ==
LOC: RADMRIMAIN 13:06
PROVIDERS: ATTEND Internal Medicine
DX: M51.16 Intervertebral disc disorders with radiculopathy, lumbar region (principal); M47.27 Other spondylosis with radiculopathy, lumbosacral region; M41.86 Other forms of scoliosis, lumbar region; M24.28 Disorder of ligament, vertebrae; M43.16 Spondylolisthesis, lumbar region; M48.061 Spinal stenosis, lumbar region without neurogenic claudication; M99.73 Connective tissue and disc stenosis of intervertebral foramina of lumbar region; M25.78 Osteophyte, vertebrae
CPT/HCPCS: 72148

== ENCOUNTER → 2024-01-24 | Outpatient (CLI) | payer MEDICARE ==
[2024-01-24 10:08] VITALS: BP 133/74; PULSE 85; RESP 16; TEMP 97.3
--- NOTE | 2024-01-24 14:18 | P.PAINPG ---
PQRS Measure Charge Sheet Comment: HISTORY OF PRESENT ILLNESS: A 88 yr old male as a referral from Dr Qureshi presents today w severe and chronic LBP > 1 yr secondary to DDD, spondylosis and facet arthropathy without myelopathy for evaluation. Pt states pain level is provoked at 8 /10 in intensity, intermittent, localized in the lumbar spine, predominantly axial, achy in character w occasional shooting pain towards the buttocks and LLE. Pain is provoked by bending, walking. Pain is alleviated by PT x 6 wks in 2019, chiropractic treatments years ago, physician guided home stretches daily times weekly since Oct 2019, ice, medications (Aleve), Voltaren topical, repositioning and rest . Oswestry axial pain score at 34. PMH: OA PSH: Double Hernia Repair (1989), Skin CA Resection (2009), Deviated Septum Repair (2019) SH: Negative x3. . Hx of experience. FH: Noncontributory All: See list Meds: See list REVIEW OF ORGAN SYSTEMS: CONSTITUTIONAL: No fevers or chills. No recent weight loss. NEUROLOGICAL: + numbness and tingling along the distal extremities. No seizure disorders or headaches. MUSCULOSKELETAL: + pain PSYCHIATRIC: Denies current depression or suicidal thoughts. Physical Examinations : Constitutional : Cooperative , not in acute distress . Neurologic : Cranial nerve II to XII intact. No focal neurological deficits. Psychiatric : alert & oriented x 3. Matching mood & appropriate affect. Judgment & insight intact. Musculoskeletal : Cervical Spine Motor strength in the deltoid and biceps: Normal right side. Normal Left side Motor strength biceps and the wrist extensors: Normal right side . Normal left side Motor strength in the triceps muscle: Normal right side. Normal left side Deep tendon reflexes: Normal at the biceps. Normal at Brachioradialis. Normal at triceps Vertebral body tenderness to deep palpation over Cervical facet loading test: positive bilaterally Spurling test: positive bilaterally Neck distraction test: positive bilaterally Roseann sign: positive bilaterally Lumbar spine Motor strength lower extremities ,thigh and legs 5/5 Right side , 5/5 Left side Deep tendon reflexes : Normal Knee Jerk. Normal Ankle Jerk Vertebral body tenderness over L3 Baca Test positive BL L3-L4 Lumbar facet Loading Test: positive Right / positive Left Range of motion of the lumbar spine Flexion 30 degrees, extension 10 degrees Straight Leg Raise test: Left/ Right positive at degrees Jelly test: positive right / positive left. Severe tenderness over the Sacroiliac joint on the Right / Left sides Gaenslen test: positive bilaterally Seated flexion test: positive bilaterally. Sacral spine : Severe tenderness over the Sacroiliac joint: right side / left side Range of motion: Flexion of the lumbar spine <60 degrees Range of motion: Extension of the lumbar spine <20 degrees Gaenslen's Test positive Jelly test: positive right side / left side Thigh Thrust Test Sacral Thrust Test Imaging: MRI non contrast of the lumbar spine from 12/19/23 reviewed Assessment/ Plan : Lumbar DDD, L4-L5 severe spinal canal stenosis Recommendation of RAF L3-L4 #1. Risks, benefits of procedure discussed and patient verbalized understanding. Admits to anti- coagulant use or medical history of diabetes. Protocol for discontinuation/ continuation of medications joan procedure discussed. All questions answered. I have spent greater than 30 minutes on patient care today. Dr Wilks was available by phone for the evaluation of this patient. The time was used to review the medical records including relevant urine studies and Prescription history (MAPs), review of the available imaging, evaluation and examination of the patient, coordination of care with the medical staff and if applicable referring physicians, as well as creation of the medical record - Pain Location Bilateral Lower Back Non-Pharmacological Interventions: Chiropractic Treatment, Physical Therapy, Position/Reposition, Relaxation Technique, Sitting Pharmacological Interventions: PRN Medication, Topical Medication PQRS Narrative: Smoking Status Former smoker Home Medications: Ambulatory Orders Albuterol Inhaler [Ventolin Hfa Inhaler] 1 - 2 puff INHALATION RT-Q6H PRN 03/30/18 Atorvastatin [Lipitor] 40 mg PO HS 03/30/18 Budesonide-Formot 160-4.5 Mcg [Symbicort 160-4.5 Mcg Inhaler] 2 puff INHALATION RT-DAILY PRN 03/30/18 Fluticasone Propion/Salmeterol [Advair Hfa 230-21 Mcg Inhaler] 2 puff INHALATION RT-DAILY PRN 03/30/18 Montelukast [Singulair] 10 mg PO HS 03/30/18 Escitalopram [Lexapro] 10 mg PO HS #14 tab 04/03/18 Melatonin 3 mg PO HS #28 tablet 04/03/18 Controlled Substance Measures - Controlled Substance Measures Is patient prescribed a controlled substance at discharge?: No
== END ==
LOC: PNWHC3 09:29
PROVIDERS: ATTEND Specialist
DX: M51.36 Other intervertebral disc degeneration, lumbar region (principal); M48.061 Spinal stenosis, lumbar region without neurogenic claudication; Z87.891 Personal history of nicotine dependence
CPT/HCPCS: 99211

== ENCOUNTER 2024-02-19 11:46 | Day surgery (SDC) | payer MEDICARE ==
[~2024-02-19 11:46] MED LIST: LACTATED RINGERS 1,000 ML IV SCH
[2024-02-19 12:34] VITALS: RESP 16; TEMP 97.7
[2024-02-19] MEDS ORDERED: ROPIVACAINE 5MG/ML 20ML VIAL ONE (12:54)
[2024-02-19] MEDS ORDERED: TRIAMCINOLONE ACETONIDE 40 MG/ML 1 ML VIAL ONE (12:54)
[2024-02-19] MEDS ORDERED: IOPAMIDOL M200 10 ML VIAL ONE (12:54)
--- NOTE | 2024-02-19 13:02 | P.PCN ---
Date of Procedure: 02/19/24 Surgeon: Marii Neves Pathology: none sent Condition: stable Disposition: PACU Description of Procedure: PREOPERATIVE DIAGNOSIS: lumbar stenosis POSTOPERATIVE DIAGNOSIS: lumbar stenosis PROCEDURE 1. Lumbar epidural steroid injection under fluoroscopic guidance at the L3-4 level in the left paramedian approach. 2. Lumbar epidurogram. ANESTHESIA: Local only with 1% lidocaine EBL: Minimal PROCEDURE INDICATION: The patient with low back pain and radiculitis symptoms unresponsive to conservative treatment. Fluoroscopy was used to optimize visualization of the needle placement and to maximize safety. PROCEDURE DESCRIPTION / TECHNIQUE: The patient was seen and identified in the preoperative area. Risks, benefits, complications including but not limited to infections ,bleeding ,allergic reaction to the medications ,nerve damage and not complete pain relief , and alternatives were discussed with the patient. The patient agreed to proceed with the procedure and signed the consent. IV was started, and vital signs were stable. Patient was taken to the OR and time out was completed. The patient was placed in the prone position on procedure table and a pillow was placed under the abdomen to reduce lumbar lordosis. The lumbosacral area was prepped and draped in the usual sterile fashion with ChloraPrep.Patient was closely monitored during the procedure. Conscious sedation was used during the procedure to decrease patients anxiety. Vital signs were monitered during the entire procedure. Using anterior-posterior fluoroscopy, the L3-4 interlaminar space was identified and the skin over this site was marked and then infiltrated with 1% lidocaine subcutaneously. Subsequently, a 20-gauge Tuohy epidural needle was inserted and advanced toward the epidural space using the Loss of resistance to air technique and guided by AP and lateral fluoroscopy. The correct needle position in the epidural space was verified with the injection of 1 mL of the water soluble contrast dye Omnipaque 180 contrast and observing an excellent epidurogram with the epidural spread of the dye, after negative aspiration for blood and CSF and in the absence of paresthesias. Again after negative aspiration, a 7 ml mixture containing 40 mg of Kenalog and 4 ml of preservative free Normal Saline, and 2 ml of preservative free Ropivacaine 0.5% solution was injected and a washout of epidurogram was seen. Needle was withdrawn intact, skin was cleansed, and bandages were applied. patient tolerated procedure well and was transferred to PACU in stable condition.A copy of the needle placement picture was saved to the fluoroscopy machine. COMPLICATIONS: None DISPOSITION / PLANS: The patient was placed in a supine position and transferred to the recovery area in a stable condition for observation. There was no evidence of lower extremity motor or sensory deficit after the procedure. Patient was discharged from the recovery room after meeting discharge criteria. Home discharge instructions were given to the patient by the staff. The patient was reexamined prior to discharge. The patient will schedule a follow up in the clinic in 2-4 weeks.
--- NOTE | 2024-02-19 13:23 | FL ---
EXAMINATION TYPE: FL guided pain mgmt statistic DATE OF EXAM: 02/19/2024 FLUOROSCOPY Fluoroscopy time of 5 seconds was used during lumbar epidural injection. 1 image/s document/s the pr dodiedure. [id number] [id number] DAP
[2024-02-19 13:27] VITALS: BP 143/82; PULSE 65
== END 2024-02-19 13:43 | disposition home or self-care (01) ==
LOC: ORPAIN 11:46
PROVIDERS: ATTEND Anesthesiology
DX: M48.061 Spinal stenosis, lumbar region without neurogenic claudication (principal); I10 Essential (primary) hypertension; Z79.82 Long term (current) use of aspirin; Z79.1 Long term (current) use of non-steroidal anti-inflammatories (NSAID); Z79.899 Other long term (current) drug therapy
CPT/HCPCS: 62323; J3301; Q9966; J2795

== ENCOUNTER → 2024-03-12 | Outpatient (CLI) | payer MEDICARE | LOC: PNWHC3 10:42 | DX: M54.16 Radiculopathy, lumbar region | CPT/HCPCS: 99211 ==

== ENCOUNTER 2024-05-20 10:49 | Day surgery (SDC) | payer MEDICARE ==
[2024-05-20 11:15] VITALS: TEMP 98.1
[2024-05-20] MEDS ORDERED: methylPREDNISolone ACETATE 40 MG/ML 1 ML VIAL ONE (12:17)
[2024-05-20] MEDS ORDERED: ROPIVACAINE 5MG/ML 20ML VIAL ONE (12:17)
--- NOTE | 2024-05-20 12:23 | P.PCN ---
Date of Procedure: 05/20/24 Procedure(s) Performed: Procedure= trigger point injections lumbar paraspinal muscles bilaterally , 3 on the right side from L2 to S1, and 4 on the left side from L2 to S1 Preoperative diagnosis= 1-myofascial pain syndrome lumbar paraspinal muscles 2-lumbar degenerative disc disease 3-lumbar spinal stenosis Postoperative diagnosis=Same as preop Diagnosis . Complication = none Condition= stable Anesthesia= moderate sedation with Versed 2 mg. Sedation started at Indication for the procedure= patient complaining of low back pain , examination was positive for multiple trigger point in the lumbar paraspinal muscles bilaterally and patient diagnosed with myofascial pain syndrome and is here to have trigger point injections Description of the procedure= procedure risk and benefits discussed with the patient, including but not limited, risk of infection and bleeding, and ALLERGIC reaction to the medication and not complete pain relief and patient agreed with the preceding patient taken to the operating room, placed in sitting position or standard monitors applied to the patient then after induction of anesthesia back prepped with chlorhexidine 3 times , then under sterile technique each of the trigger point that was marked in the preop holding area 3 on the right side lumbar paraspinal muscles and 4 on the left side lumbar paraspinal muscles each one of them injected with the 2 mL of the mixture of ropivacaine 0.5% 14 ML mixed with 40 mg of Depo-Medrol and 2 mL of the mixture injected at each trigger point after negative aspiration, using 25-gauge needle, injection done after negative aspiration under was no paresthesia during the injection patient tolera jas the procedure well without any complications and he will follow up in the pain clinic in a few weeks
[2024-05-20 12:44] VITALS: BP 138/68; PULSE 78; RESP 18
== END 2024-05-20 13:00 | disposition home or self-care (01) ==
LOC: ORPAIN 10:49
PROVIDERS: ATTEND Specialist
DX: M47.816 Spondylosis without myelopathy or radiculopathy, lumbar region
CPT/HCPCS: 20553